=== PATIENT | female | born 2000 | race Two or more races ===

== ENCOUNTER 2021-10-18 07:07 | Inpatient (IN) ==
[2021-10-18] MEDS ORDERED: OXYTOCIN 30 UNITS/500 ML BAG IV PRN ×3 (07:41→18:15)
[2021-10-18 08:08] LABS: Hematocrit (blood only) 38.6 % (37-47); Hemoglobin 13.2 g/dL (12.0-16.0); Mean Corpuscular Hemoglobin 29.7 pg (25-34); Mean Corpuscular Hgb Conc 34.2 g/dL (32-36); Mean Corpuscular Volume 86.7 fL (80-100); Mean Platelet Volume 10.5 fL (7.4-10.4); Platelet Count 258 K/uL (130-400); RDW Coefficient of Variation 14.9 % (11.5-14.5); RDW Standard Deviation 47.1 fL (36.4-46.3); Red Blood Count 4.45 M/uL (4.2-5.4); White Blood Count 12.09 K/uL (4.8-10.8)
--- NOTE | 2021-10-18 08:21 | History & Physical Report ---
Date of Service October 18, 2021 Assessment & Plan (1) Supervision of normal first : Plan: 21 yo G1 presenting with SROM at 40 1/7 weeks for supervision of first -Admit to labor and delivery -Anticipate normal spontaneous vaginal delivery -Augment with Pitocin as needed -Epidural available -NPO, LR at 125 ml/hr -Continuous monitoring History of Present Illness Primary Care Provider: NO PCP Pt is a 21 y/o G1 at 40 1/7 weeks presenting to L&D for evaluation of ROM. Pt reports that at 6:00 AM she had a gush of clearish fluid wich she believes is her ROM. She has been following the clinic for routine care. She is feeling contractions about every 5 minutes. Denies any discharge of blood. Pt reports last movement was at the same time her water broke. Pt is requesting that she receives an epidural when contractions get stronger. Pt is GBS-. No complications noted. OB Labs: Blood Type O Positive 03/28/21 Antibody Screen NEGATIVE 03/28/21 Hemoglobin 12.4 g/dL (12.0-16.0) 08/02/21 Hematocrit 38.0 % (37-47) 08/02/21 Mean Corpuscular Volume 87.0 fL (80-100) 03/28/21 Platelet Count 295 K/uL (130-400) 03/28/21 Rubella IgG Antibody Immune (Immune) 03/28/21 Rapid Plasma Reagin Nonreactive (Nonreactive) 03/28/21 Hepatitis B Surface Antigen Neg (Neg) 03/28/21 HIV (1&2) Ab and P24 Ag, 4th Gener Neg (Neg) 03/28/21 Glucose 1 Hour 50 gm Load 108 mg/dl (70-130) 07/19/21 OB Optional Labs: Chlamydia trachomatis RNA NOT DETECTED (NOT DETECTED) 03/28/21 Neisseria gonorrhoeae RNA NOT DETECTED (NOT DETECTED) 03/28/21 Allergies Allergy/AdvReac Type Severity Reaction Status Date / Time No Known Allergies Allergy Verified 10/17/21 11:37 Home Medications Medication Instructions Recorded Confirmed Type prenat.vits,harsh,jtt-qcrg-vzykj 1 tab PO DAILY 03/27/21 10/18/21 History Patient History Medical History (System 09/22/21 @ 07:27 by Viktoriya Corley) Patient denies significant medical history Surgical History (System 09/22/21 @ 07:27 by Viktoriya Corley) No history of previous surgery Family History (System 09/22/21 @ 07:27 by Viktoriya Corley) Uncle Diabetes Denies family history of Ovarian cancer Breast cancer Colorectal cancer Social History (Updated 10/18/21 @ 07:27 by Shikha Clements, RN) Smoking Status: Never smoker Second Hand Exposure: No; Hx Alcohol Use: No Hx Substance Use: No Preferred Language: Luxembourgish Communication Ability: Effective Electric Serviceman Required: No Beliefs That Will Affect Care: None marital status: marital status details: Mariya Valenzuela (23) [phone] Current Living Situation: Spouse Current Living Situation Comment: lives with spouse, no pets current occupational status: employed current occupation: on line work Other Information That Helps Us Care for You: No Feels Safe at Home: Yes Safety Concerns: Feels Safe At This Time and Afraid for Self Diet Comment: KOSHER - HALAL Diet Assistive Devices: None Review of Systems All systems reviewed & are unremarkable except as noted in HPI & below Physical Exam Physical Exam: General: Alert, oriented, no acute distress Cardiac: Regular rate and rhythm, normal S1, S2. No murmurs appreciated. Respiratory: Clear to auscultation b/l with good air flow entry, symmetric chest rise and fall. No wheezes or crackles. No increased work of breathing or accessory muscle use Abdomen: Gravid, soft, nontender. No guarding or CVA tenderness Skin: No rashes or lesions Extremities: Warm, dry, well-perfused with capillary refill <2s b/l. No lower extremity edema, erythema or swelling. Negative Suad's sign b/l. Pelvic Exam per Dr. Serna Dilation:3 cm Effacement:90% Station:-1 FHR Baseline: 140 BPM Variability: good Accelerations: present Decelerations: none Results & Data ([facility]) Vital Signs (Past 12 Hours) Vital Signs Temp Pulse Resp BP 10/18/21 07:32 75 135/75 10/18/21 07:27 36.6 C 18 Supervising Physician Co-Signing Physician Notes Resident Physician Supervision Note: I interviewed and examined the patient. Discussed with Dr. Villanueva and agree with findings and plan as documented in the note. Any exceptions or clarifications are listed here: 21yo @ 40 07/21, large gush of clear fluid this morning at 6am. Some irreg ctx, not yet regular. Fht Cat 1, toco Q6. SVE /, grossly ruptured with clear fluid. Admit to L&D, EFm/toco, labs, IV. Patient desires to ambulate and see if ctx sampler pickup. Documented By: Mai Serna, DO
[2021-10-18] MEDS ORDERED: ePHEDrine sulfate 50 MG/ML AMP ONE (10:22)
[2021-10-18] MEDS ORDERED: BUPIVACAINE 0.25% 30 ML VIAL ONE (10:23)
[2021-10-18] MEDS ORDERED: fentaNYL 2MCG/ML ROPIVACAINE 1.25MG/ML 100 ML BAG EPI ONE (10:23)
[2021-10-18] MEDS ORDERED: SODIUM CHLORIDE 0.9% INJ 10 ML VIAL ONE (10:23)
[2021-10-18] MEDS ORDERED: fentaNYL citrate 100 MCG/2 ML VIAL ONE (10:23)
[2021-10-18] MEDS: LACTATED RINGER'S 1,000 ML IV PRN ×3 (10:28→15:43)
[2021-10-18] MEDS ORDERED: NALOXONE HCL 0.4 MG/1 ML VIAL/CARP IV PRN (10:51)
[2021-10-18] MEDS ORDERED: ePHEDrine sulfate 50 MG/ML AMP IV PRN (10:51)
[2021-10-18] MEDS ORDERED: ONDANSETRON INJ 2 MG/ML 2 ML VIAL IV PRN (10:51)
[2021-10-18] MEDS ORDERED: NALOXONE HCL 1 MG in SODIUM CHLORIDE 0.9% 1000ML 1,000 ML IV PRN (10:51)
[2021-10-18] MEDS ORDERED: diphenhydrAMINE 50 MG/ML VIAL IV PRN (10:51)
[2021-10-18] MEDS ORDERED: NALBUPHINE HCL INJ 10 MG/ML AMP IV PRN (10:51)
[2021-10-18] MEDS ORDERED: fentaNYL 2MCG/ML ROPIVACAINE 1.25MG/ML 100 ML BAG EPI PRN (10:51)
--- NOTE | 2021-10-18 10:51 | Anesthesiology Consultation ---
Date of Service October 18, 2021 Assessment & Plan ASA ASA2 Proposed Anesthesia Anesthesia Type: Labor Epidural Risk / Benefits Reviewed With: PT / POA / Parent / Guardian, Accepts Plan and Informed Consent Obtained History Height/Weight Height: 5 ft 6.93 in Weight: 72.121 kg Allergies Allergy/AdvReac Type Severity Reaction Status Date / Time No Known Allergies Allergy Verified 10/17/21 11:37 Medications Home Medications Medication Instructions Recorded Confirmed Last Taken prenat.vits,harsh,abo-grbq-odrkr 1 tab PO DAILY 03/27/21 10/18/21 10/17/21 Active Medications Generic Name Dose Route Start Last Admin Trade Name Freq PRN Reason Stop Dose Admin Lactated Ringer's 1,000 mls @ 125 mls/hr 10/18/21 07:41 10/18/21 11:22 Lr IV 10/20/21 07:40 999 mls/hr .Q8H PRN Administration L&D Protocol Protocol Past Medical History Medical History Patient denies significant medical history Exercise / Class Metabolic Activity II 4-5 Yardwork/Stairs/Walk up hill Past Family History Family History Uncle Diabetes Denies family history of Ovarian cancer Breast cancer Colorectal cancer Past Surgical History Surgical History No history of previous surgery Past Anesthesia History No Hx of Anesthesia Complications and No Family Hx of Anesthesia Complications History of PONV No Hx of PONV and No Hx of Motion Sickness Social History Smoking Status: Never smoker Hx Alcohol Use: No Hx Substance Use: No substance use type: does not use Review of Systems denies fever/cough/ colds/ chest pain/ SOB/ SANDEEP denies SANDEEP Physical Exam Vital Signs Last Vital Signs Temp 36.6 C 10/18/21 10:29 Pulse 87 10/18/21 12:19 Resp 18 10/18/21 12:05 BP 133/79 10/18/21 12:05 Pulse Ox 100 10/18/21 12:19 ENMT Mouth: no TMJ abnormality and no dentition abnormality Thyromental Distance: > or= 3.5 Finger Breadths Mallampati Class: II Neck neck extension not limited Respiratory normal respiratory effort; no respiratory distress Auscultation: lungs clear to auscultation bilaterally Cardiovascular Rate/Rhythm: regular rate and regular rhythm Neurologic moves all extremities Psychiatric Orientation: alert and oriented x 3 Testing Laboratory Results 10/18/21 07:55
[2021-10-18] MEDS ORDERED: HYDROCORTISONE ACETATE 25 MG SUPP PR PRN (18:15)
[2021-10-18] MEDS ORDERED: DIPHTHERIA/TETANUS/PERTUSSIS 0.5 ML SYR/VIAL IM ONE (18:15)
[2021-10-18] MEDS ORDERED: ACETAMINOPHEN 325 MG TAB PO PRN (18:15)
[2021-10-18] MEDS ORDERED: bisacodyL 10 MG SUPP PR PRN (18:15)
[2021-10-18] MEDS ORDERED: oxyCODONE/ACETAMINOPHEN 5mg/325mg TAB PO PRN (18:15)
[2021-10-18] MEDS ORDERED: BENZOCAINE 20% AER SPR 82.5 GM CAN EXT PRN (18:15)
--- NOTE | 2021-10-18 18:22 | Delivery Summary ---
Vaginal Delivery Summary Date of Service October 18, 2021 Vaginal Delivery Summary and 2nd Degree LAC Patient is a 21-year-old 1 P0 white female who presented at 40 1/7 weeks with spontaneous rupture of membranes for clear fluid. She requested epidural analgesia and then required Pitocin augmentation of her labor. She progressed to full dilation with the head on the perineum without any maternal effort. She pushed effectively for delivery of a viable female over intact perineum. After the head was delivered the right hand was delivered anteriorly. The rest of the infant delivered easily was placed on the mother's abdomen for further attention and drying. The was vigorous and crying upon delivery. The cord was noted to be somewhat short . After approximately 1 minute the cord was clamped and cut. The placenta was then expressed intact with a three-vessel cord. A second-degree perineal laceration was repaired with 3-0 chromic in the usual fashion. bleeding was controlled with fundal massage and dilute Pitocin. Estimated blood loss 300 cc. [facility] Vaginal Delivery Charge Delivery Type Details: and 2nd Degree LAC
--- NOTE | 2021-10-18 18:29 | Anesthesia Procedure Note ---
Date of Service October 18, 2021 Anesthesia Post Epidural Note Vital Signs Vital Signs: Temp Pulse Resp BP Pulse Ox 36.8 C 90 20 138/75 100 10/18/21 18:15 10/18/21 18:24 10/18/21 18:15 10/18/21 18:24 10/18/21 17:49 Notes Mental Status: alert / awake / arousable Nausea / Vomiting: adequately controlled Pain: adequately controlled Airway Patency, RR, SpO2: stable & adequate BP & HR: stable & adequate Hydration State: stable & adequate Neuraxial Anesthesia: was administered and sensory block is resolving Anesthetic Complications: no major complications apparent Epidural: Removed without complications and With tip intact
[2021-10-18] MEDS: DOCUSATE SODIUM 100 MG CAP PO SCH (20:46)
[2021-10-18] MEDS: IBUPROFEN 600 MG TAB PO PRN (22:03)
[2021-10-19 06:38] LABS: Hematocrit (blood only) 36.2 % (37-47); Hemoglobin 11.9 g/dL (12.0-16.0); Mean Corpuscular Hemoglobin 28.9 pg (25-34); Mean Corpuscular Hgb Conc 32.9 g/dL (32-36); Mean Corpuscular Volume 87.9 fL (80-100); Mean Platelet Volume 10.3 fL (7.4-10.4); Platelet Count 243 K/uL (130-400); RDW Standard Deviation 47.5 fL (36.4-46.3); Red Blood Count 4.12 M/uL (4.2-5.4); White Blood Count 17.86 K/uL (4.8-10.8)
--- NOTE | 2021-10-19 07:09 | Obstetrical Progress Note ---
Date of Service October 19, 2021 Assessment & Plan (1) Encounter for care and examination after delivery: Plan: 21yo PPD1 s/p at 40 1/7 weeks -Continue routine care -Vitals reviewed- HDS, afebrile -O+, GBS-, Rubella immune -Encourage ambulation, regular diet -Pain control with ibuprofen, acetaminophen PRN -Encourage -Keep today and discuss D/C tomorrow if doing well. -F/u in 6 weeks withOB Admission and Anticipated Discharge Date Admission Date: October 18, 2021 Supervising Physician Co-Signing Physician Notes Resident Physician Supervision Note: I interviewed and examined the patient. Discussed with Dr. Villanueva and agree with findings and plan as documented in the note. Any exceptions or clarifications are listed here: [None] Documented By: Indira Nichols MD, FACOG Subjective PPD1 s/p . Patient seen and examined at bedside. Reports no acute overnight events. Ambulating and voiding. Passing gas. Regular diet w/o N/V. Lochia small. Breast feeding without difficulty. Pain 2/10. Review of Systems Review of Systems: All systems reviewed & are unremarkable except as noted in HPI & below Physical Exam Physical Exam: General: Alert, oriented, no acute distress Cardiac: Regular rate and rhythm, normal S1, S2. No murmurs appreciated. Respiratory: Clear to auscultation b/l with good air flow entry, symmetric chest rise and fall. No wheezes or crackles. No increased work of breathing or accessory muscle use Abdomen: Soft, nontender, nondistended. Fundus firm and palpable at 2 cm below umbilicus. No guarding or rebound. Skin: No rashes or lesions Extremities: Warm, dry, well-perfused with capillary refill <2s b/l. No lower extremity edema, erythema or swelling. Negative Suad's sign b/l. Results & Data ([facility]) Vital Signs (Past 12 Hours) Vital Signs Temp Pulse Pulse Pulse Resp BP BP 10/19/21 04:00 37.1 C 83 16 113/77 10/18/21 23:40 37.1 C 83 16 116/71 10/18/21 21:45 37.1 C 84 16 130/86 10/18/21 20:25 36.8 C 94 H 20 135/64 10/18/21 20:09 103 H 144/67 H 10/18/21 19:55 120 H 122/83 10/18/21 19:39 94 H 134/79 10/18/21 19:24 107 H 129/83 10/18/21 19:15 18 10/18/21 19:09 95 H 129/74 Pulse Ox 10/19/21 04:00 10/18/21 23:40 98 10/18/21 21:45 98 10/18/21 20:25 10/18/21 20:09 10/18/21 19:55 10/18/21 19:39 10/18/21 19:24 10/18/21 19:15 10/18/21 19:09
[2021-10-19] MEDS: DOCUSATE SODIUM 100 MG CAP PO SCH ×2 (08:14→21:30)
[2021-10-19] MEDS: PRENATAL VITAMIN 1 TAB PO SCH (08:14)
[2021-10-19] MEDS: IBUPROFEN 600 MG TAB PO PRN ×3 (08:14→23:11)
[2021-10-19] MEDS ORDERED: bisacodyL 5 MG TABEC PO SCH (20:00)
[2021-10-20 06:50] LABS: Hematocrit (blood only) 37.1 % (37-47); Hemoglobin 12.4 g/dL (12.0-16.0)
--- NOTE | 2021-10-20 06:59 | Obstetrical Progress Note ---
Date of Service October 20, 2021 Assessment & Plan (1) Encounter for care and examination after delivery: PPD#2, discharge home today. Subjective Ambulation: ambulating normally Voiding: no voiding problems Passing Gas:: Yes Diet Tolerance:: regular diet Lochia:: Small Feeding Type:: breast feeding Physical Exam Constitutional WD/WN, vitals as above Eyes PERRL, conjunctivae normal, anicteric sclerae Neck normal visual inspection Respiratory normal respiratory effort and able to speak in complete sentences; no respiratory distress and no labored breathing Cardiovascular Rate/Rhythm: regular rate and regular rhythm Extremities: no edema Chest (Breasts) Chest: normal inspection of chest Gastrointestinal (Abdomen) Inspection/Auscultation: abdomen normal to inspection Soft, postgravid Psychiatric A+Ox3, euthymic affect Genitourinary OB Exam Abdomen: + fundal height Fundus: + firm and + relation to umbilicus (fundus just below umbilicus); not tender Results & Data ([facility]) Vital Signs (Past 12 Hours) Vital Signs Temp Pulse Pulse Resp BP BP Pulse Ox 10/19/21 23:00 97.5 F L 79 20 127/88 98 10/19/21 20:35 97.9 F 73 18 103/67 99
[2021-10-20] MEDS: DOCUSATE SODIUM 100 MG CAP PO SCH (08:26)
[2021-10-20] MEDS: PRENATAL VITAMIN 1 TAB PO SCH (08:26)
== END 2021-10-20 11:35 | disposition home or self-care (01) | DRG 807 ==
LOC: OPB 07:07 → 4S1 07:10 → 4E2 21:05